=== PATIENT | male | born 1960 | race Caucasian/White ===

== ENCOUNTER 2017-12-31 11:40 | Outpatient (CLI) | payer BC ==
--- NOTE | 2017-12-31 14:15 | Diagnostic Imaging Report ---
Indication: Pain Technique: 2 views of the chest Comparison: 01/07/2011 single view chest Findings: Lungs and pleural spaces are clear. The heart size is normal. The bones are unremarkable. No significant interim change. Impression: Negative
== END 2017-12-31 13:40 | disposition home or self-care (01) ==
LOC: RAD 11:40
DX: I10 Essential (primary) hypertension (principal)
CPT/HCPCS: 71046